=== PATIENT | male | born 2000 | race Two or more races ===

== ENCOUNTER 2023-08-22 05:10 | Day surgery (SDC) | payer OTHER ==
[2023-08-22 09:25] LABS: INR 1.08; PARTIAL THROMBOPLASTIN TIME 27.8 SECONDS (22.0-34.0); PROTHROMBIN TIME 11.3 SECONDS (9.0-11.5)
[2023-08-22] MEDS ORDERED: OXYC1TAB9 PO (11:52)
== END 2023-08-22 18:35 | disposition home or self-care (01) ==
LOC: CIR.AMB 05:10
PROVIDERS: ATTEND Surgery
DX: L05.01 Pilonidal cyst with abscess (principal); Z88.6 Allergy status to analgesic agent; Z20.822 Contact with and (suspected) exposure to COVID-19